=== PATIENT | female | born 1970 | race Caucasian/White ===

== ENCOUNTER 2017-01-24 05:16 | Day surgery (SDC) | payer OTHER ==
[~2017-01-24 05:16] MED LIST: ADDERALL20 MG PO; CELEXA40 MG PO; IBU600 PO; IMITREX100 MG PO; NEUR100 PO; NORCO1 TAB PO
[2017-03-17] MEDS ORDERED: VITC500 PO (12:30)
[2017-03-17] MEDS ORDERED: MELATONIN5 M1 PO (12:30)
[2017-03-17] MEDS ORDERED: MINIVELLE1 EAC1 TOP (12:31)
== END 2017-01-24 09:56 | disposition home or self-care (01) ==
LOC: SDC 05:16
PROVIDERS: Orthopaedic Surgery
PROC: 3E0R3BZ Introduction of Anesthetic Agent into Spinal Canal, Percutaneous Approach (ICD-10-PCS; 2017-01-24)
PROC: 3E0R33Z Introduction of Anti-inflammatory into Spinal Canal, Percutaneous Approach (ICD-10-PCS; principal; 2017-01-24 07:30)
DX: M54.16 Radiculopathy, lumbar region (principal); G43.909 Migraine, unspecified, not intractable, without status migrainosus; Z90.710 Acquired absence of both cervix and uterus; Z98.890 Other specified postprocedural states
CPT/HCPCS: J1040; J2250; J3010

== ENCOUNTER 2017-03-18 05:48 | Day surgery (SDC) | payer OTHER ==
--- NOTE | ~2017-03-18 | OP ---
Record Of Operation [facility] [address] [place]. [address] NAME: ASH DAVIS : 68 STATUS : [facility]#: [id number] AGE: 46 ADM/REG DATE : 03/18/17 MR#: [id number] REPORT SERV DATE: 03/19/17 DICTATED BY: SAÚL WINCHESTER II DATE: 03/19/17 REPORT STATUS : Draft TRANSCRIBED BY: MODIram DATE: 03/19/17 DATE OF PROCEDURE: 03/18/2017 POSTOPERATIVE DIAGNOSES: 1. Right lower extremity radiculopathy. 2. Stenosis, right L5-S1 lateral recess. POSTOPERATIVE DIAGNOSES: 1. Right lower extremity radiculopathy. 2. Stenosis, right L5-S1 lateral recess. PROCEDURE: 1. Right L5-S1 laminotomy. 2. Use of the microscope and stereotactic spinal imaging. SURGEON: Saúl Winchester M.D. FLUIDS: 1300 mL LR. ESTIMATED BLOOD LOSS: 10 mL. DRAINS: None. COMPLICATIONS: None. ANTIBIOTIC: Preoperatively. PREOPERATIVE HISTORY: This is a friendly 46-year-old female who works locally in a dentist office who reports pain radiating into the right buttock and the right thigh. She did well following a left-sided approach for decompression. DESCRIPTION OF PROCEDURE: After informed consent was obtained, the patient was brought to the operating room at her request and general anesthesia achieved. She was placed in the prone position. The back was prepped and draped in a sterile fashion. The stereotactic spinal pin was placed into the iliac crest and an intraoperative CT scan completed and stereotactic guidance used throughout the case. Next, the minimally invasive incision was performed using stereotactic guidance. The tubular retractor was placed without difficulty. The microscope was brought into place, and under microscopic visualization, the laminotomy was performed. The high-speed bur and the Kerrison rongeurs and the curettes were used. The ligamentum flavum was identified. The ligamentum flavum was more thickened than I had anticipated. This was causing significant compression upon the sac and the S1 nerve root. The decompression was carried out. Next, a small portion of the facet was removed. Next, irrigation was performed followed by confirmation of hemostasis. Next, the standard closure was performed, and the patient was then extubated and transferred to PACU in stable condition. I saw the patient in the phase Record Of Operation [place] [id number] [facility] [address] NAME: ASH DAVIS : 68 STATUS : [facility]#: [id number] AGE: 46 ADM/REG DATE : 03/18/17 MR#: [id number] REPORT SERV DATE: 03/19/17 DICTATED BY: SAÚL WINCHESTER II DATE: 03/19/17 REPORT STATUS : Draft TRANSCRIBED BY: MODL DATE: 03/19/17 2 recovery, and she was awake, alert, and oriented and moving all extremities well. JENNIFER/JUANITA Saúl Winchester II, M.D. / [id number] CC: Tnoa Villegas II, M.D.
[~2017-03-18 05:48] MED LIST changes: +MELATONIN5 M1 PO; +MINIVELLE1 EAC1 TOP; +VITC500 PO
== END 2017-03-18 15:46 | disposition home or self-care (01) ==
LOC: SDC 05:48
PROVIDERS: Orthopaedic Surgery
PROC: 01NB0ZZ Release Lumbar Nerve, Open Approach (ICD-10-PCS; principal; 2017-03-18 07:00)
DX: M48.07 Spinal stenosis, lumbosacral region (principal); M54.17 Radiculopathy, lumbosacral region; F90.9 Attention-deficit hyperactivity disorder, unspecified type; G43.909 Migraine, unspecified, not intractable, without status migrainosus; Z91.048 Other nonmedicinal substance allergy status; Z90.710 Acquired absence of both cervix and uterus; Z98.82 Breast implant status; Z85.820 Personal history of malignant melanoma of skin; Z98.890 Other specified postprocedural states
CPT/HCPCS: 80048; 85025; 88304; 88311; 93005; A9270-GY; J0690; J1170; J2250; J2405; J2550; J2710; J3010